=== PATIENT | male | born 1965 | race Caucasian/White ===

== ENCOUNTER 2018-05-12 07:34 | Day surgery (SDC) | payer OTHER ==
[~2018-05-12] VITALS: Ht 182.9 cm; Wt 103.0 kg
[2018-05-12] VITALS (8 sets, daily range): BP systolic 119–173; BP diastolic 53–79; PULSE 58–77; TEMP 97.7–99.6
[~2018-05-12 07:34] MED LIST: FENTANYL 100MCG TD; FLOMAX 0.40.4 MG/CAP PO; LAMISIL250 M1 PO; PERCOCET 325 MG1 TAB PO; PRINZIDE 25 MG-1 TAB PO; ZOCOR 40MG40 MG PO
--- NOTE | 2018-05-12 13:00 | NUR ---
Patient wheeled back to [facility]. Alert and oriented. Laying with eyes closed. Vital signs stable. Remains on 1L oxygen via nasal cannula. States pain is 10/10 to abdomen and he feel nasueous. Requesting ice water at this time, tolerating well. Family at bedside, call horner within reach, will continue to monitor.
--- NOTE | 2018-05-12 13:30 | NUR ---
Patient is resting in bed. States that he continues to be in severe discomfort. Small sips of water taken. Does not want anything to eat at this time.
--- NOTE | 2018-05-12 13:45 | NUR ---
Patient is resting in bed at this time. Taking small sips of water. Refusing to eat at this time. Oxygen able to be weaned off. Currently 93% on room air. Family at bedside. Will continue to monitor.
--- NOTE | 2018-05-12 14:20 | NUR ---
Patient states he needs to use restroom. Unable to get out of bed due to severe pain. Patient is yelling, crying, and making threatening remarks to staff and family. Dr. Cantrell made aware, telephone orders recieved for Morphine. Administered per MD orders. Patient able to void in urinal. Will continue to monitor.
--- NOTE | 2018-05-12 14:48 | NUR ---
Patient states that IV Morphine helped pain briefly. But now pain is back up to 10/10 to abdomen. Pain medication given per orders. Will continue to monitor.
--- NOTE | 2018-05-12 15:30 | NUR ---
Patient states that pain continues to be unresolved. Able to eat cracker. Tolerating well.
--- NOTE | 2018-05-12 15:40 | NUR ---
Patient states that something does feel right. Pain continues to be a 10/10 despite administration of oral and PO medications. Dr. Cantrell pagedeep. At [facility] for second assessment. Orders given by physician to administer Dilauded 1mg now. Vital signs stable. Will continue to monitor.
--- NOTE | 2018-05-12 16:00 | NUR ---
Patient ambulated to bathroom, spontaneous void achived. States that pain is still severe but is able to walk a little. Requesting to leave as soon as possible. IV removed. Discharge instructions reviewed with patient and family. Verbalized understanding.
--- NOTE | 2018-05-12 16:10 | NUR ---
Patient taken to lobby via wheel chair. to drive patient home.
== END 2018-05-12 16:10 | disposition home or self-care (01) ==
LOC: SDCO 07:34
DX: K43.0 Incisional hernia with obstruction, without gangrene (principal); Z98.84 Bariatric surgery status; E66.9 Obesity, unspecified; Z68.28 Body mass index [BMI] 28.0-28.9, adult; C69.91 Malignant neoplasm of unspecified site of right eye; G89.29 Other chronic pain; M54.5 Low back pain; I10 Essential (primary) hypertension; I25.10 Atherosclerotic heart disease of native coronary artery without angina pectoris; E78.5 Hyperlipidemia, unspecified; Z82.49 Family history of ischemic heart disease and other diseases of the circulatory system; Z87.891 Personal history of nicotine dependence; Z79.899 Other long term (current) drug therapy
CPT/HCPCS: C1781; J0690; J1100; J1170; J2270; J2405; J2704; J3010; J7120

== ENCOUNTER 2021-08-14 06:58 | Day surgery (SDC) | payer OTHER ==
[~2021-08-14] VITALS: Ht 182.9 cm; Wt 89.4 kg
[2021-08-14] MEDS ORDERED: PROTONIX 40MG T40 MG PO (07:46)
[2021-08-14 07:53] VITALS: BP 124/74; PULSE 58; TEMP 98.6
[2021-08-14 08:50] VITALS: BP 103/67; PULSE 62; TEMP 97.4
--- NOTE | 2021-08-14 08:50 | NUR ---
PATIENT ARRIVES TO ROOM 4 VIA CART. ASSIST TO CHAIR X 1. AT BEDSIDE. VITAL SIGNS WNL. PATIENT REQUESTS APPLE JUICE AND CRACKERS. WILL CONTINUE TO MONITOR.
[2021-08-14 09:05] VITALS: BP 103/69; PULSE 55
--- NOTE | 2021-08-14 09:05 | NUR ---
PATIENT IS ALERT AND ORIENTED. DENIES ANY PAIN OR NAUSEA. VITAL SIGNS WNL. IV DISCONTINUED. DOCTOR AT BEDSIDE. WILL CONTINUE TO MONITOR.
[2021-08-14 09:20] VITALS: BP 115/57; PULSE 53
--- NOTE | 2021-08-14 09:20 | NUR ---
PATIENT IS READY FOR DISCHARGE. VITAL SIGNS WNL. DISCHARGE INSTRUCTIONS REVIEWED. WILL DISCHARGE ONCE HE IS DRESSED.
== END 2021-08-14 09:33 | disposition home or self-care (01) ==
LOC: SDCO 06:58
DX: Z12.11 Encounter for screening for malignant neoplasm of colon (principal); K21.9 Gastro-esophageal reflux disease without esophagitis; K25.7 Chronic gastric ulcer without hemorrhage or perforation; Z98.84 Bariatric surgery status
CPT/HCPCS: J2704; J7030

== ENCOUNTER 2021-09-28 10:34 | Day surgery (SDC) | payer OTHER ==
[~2021-09-28] VITALS: Ht 182.9 cm; Wt 87.0 kg
[~2021-09-28 10:34] MED LIST changes: +PROTONIX 40MG T40 MG PO
[2021-09-28 11:11] VITALS: BP 145/72; PULSE 64; TEMP 97.7
[2021-09-28 14:30] VITALS: BP 109/50; PULSE 67; TEMP 98.1
[2021-09-28 14:45] VITALS: BP 116/67; PULSE 65
[2021-09-28 15:00] VITALS: BP 129/59; PULSE 67
--- NOTE | 2021-09-28 15:16 | NUR ---
1430: Patient arrived back into bay 7 from PACU. Patient is alert and awake. Vital signs stable on room air. Report received from JONG Espinosa. Patient requesting water and saltines. Patient up to restroom, patient able to void successfully. at bedside. Call light left within reach. 1445: Patient vitally stable. Tolerating food and drink well. Rating pain 4-5/10 to incisional area. PRN pain medications given per MAR. 1500: Patient vitally stable. Meets discharge criteria. Went through discharge instructions with patient and . IV removed without complications, coband applied. 1505: Escorted to patient entrance via wheelchair. Patient left in the care of his .
[2021-09-28 18:35] VITALS: BP 131/71; PULSE 68; TEMP 98.3
== END 2021-09-28 15:10 | disposition home or self-care (01) ==
LOC: SDCO 10:34
DX: K40.90 Unilateral inguinal hernia, without obstruction or gangrene, not specified as recurrent (principal); I10 Essential (primary) hypertension; G89.29 Other chronic pain; M54.50 Low back pain, unspecified; K21.9 Gastro-esophageal reflux disease without esophagitis; Z87.891 Personal history of nicotine dependence; Z98.84 Bariatric surgery status
CPT/HCPCS: C1781; J2250; J2704; J2795; J3010; J7120